=== PATIENT | male | born 1955 | race Caucasian/White ===

== ENCOUNTER 2018-12-07 18:20 | Emergency (ER) | payer BC ==
--- NOTE | 2018-12-07 18:56 | ED ---
Skin Complaint - HPI Summary HPI Summary: 63 yr old with the complaint of rash left side chest wall. The patient began to get pain on the left side that was burning last evening and this morning developed rash that is red with some vesicles. The patient has pain that is moderate. No fever or chills. No other complaints. - History of Current Complaint Chief Complaint: UCRash Time Seen by Provider: 12/07/18 18:42 Stated Complaint: SKIN COMP Pain Intensity: 8 - Allergy/Home Medications Allergies/Adverse Reactions: Allergies Allergy/AdvReac Type Severity Reaction Status Date / Time No Known Allergies Allergy Verified 12/07/18 18:39 Home Medications: Home Medications Levothyroxine TAB* [Synthroid TAB*] 175 mcg PO 0600 12/07/18 [History Confirmed 12/07/18] Lisinopril TAB* [Prinivil TAB*] 10 mg PO BEDTIME 12/07/18 [History Confirmed 06/22] Rivaroxaban TAB(*) [Xarelto 20 mg] 20 mg PO DAILY 12/07/18 [History Confirmed ] Simvastatin TAB(NF) [Zocor(NF)] 10 mg PO BEDTIME 12/07/18 [History Confirmed 06/22] metFORMIN* [Glucophage 500 MG TAB *] 2 tab PO BID 12/07/18 [History Confirmed ] PMH/Surg Hx/FS Hx/Imm Hx Endocrine/Hematology History: Reports: Hx Diabetes - type 2, Hx Thyroid Disease Cardiovascular History: Reports: Hx Hypertension Respiratory History: Denies: Hx Asthma Comment Only: Other Respiratory Problems/Disorders - follow up CXR- Infectious Disease History: No Infectious Disease History: Denies: Traveled Outside the [place] in Last 30 Days - Family History Known Family History: Positive: None - Social History Alcohol Use: Weekly Alcohol Amount: weekends only Substance Use Type: Reports: None Smoking Status (MU): Former Smoker Review of Systems Constitutional: Negative Positive: Rash All Other Systems Reviewed And Are Negative: Yes Physical Exam Triage Information Reviewed: Yes Vital Signs On Initial Exam: Initial Vitals Temp Pulse Resp BP Pulse Ox 98 F 69 16 133/72 98 12/07/18 18:34 12/07/18 18:34 12/07/18 18:34 12/07/18 18:34 12/07/18 18:34 Vital Signs Reviewed: Yes Appearance: Positive: Well-Appearing, No Pain Distress Skin: Positive: Other - rash left side thorax, red rash in the T-8 dermatome. Doesn't cross midline. Head/Face: Positive: Normal Head/Face Inspection Eyes: Positive: EOMI, EDAGR ENT: Positive: Normal ENT inspection Neck: Positive: Nontender Respiratory/Lung Sounds: Positive: Clear to Auscultation, Breath Sounds Present Cardiovascular: Positive: RRR. Negative: Murmur Abdomen Description: Negative: Distended Musculoskeletal: Positive: Strength/ROM Intact Neurological: Positive: Sensory/Motor Intact, Alert, Oriented to Person Place, Time, CN Intact II-III, Normal Gait, Speech Normal Psychiatric: Positive: Normal Diagnostics - Vital Signs Vital Signs Temp Pulse Resp BP Pulse Ox 12/07/18 18:34 98 F 69 16 133/72 98 - Laboratory Lab Statement: Any lab studies that have been ordered have been reviewed, and results considered in the medical decision making process. Course/Dx - Course Course Of Treatment: 63 yr old with shingles. Rx with Valtrex. - Diagnoses Provider Diagnoses: Shingles Discharge ED - Sign-Out/Discharge Documenting (check all that apply): Patient Departure All imaging exams completed and their final reports reviewed: No Studies - Discharge Plan Condition: Good Disposition: HOME Prescriptions: Gabapentin CAP(*) [Neurontin 300 CAP(*)] 300 mg PO BEDTIME #10 cap ValACYclovir (*) [Valtrex 1 GM(*)] 1 gm PO TID #21 tab Patient Education Materials: Shingles (ED) Referrals: Farideh Gibbs [Primary Care Provider] - 1 Week - Billing Disposition and Condition Condition: GOOD Disposition: Home
== END 2018-12-07 18:58 | disposition home or self-care (01) ==
LOC: UCCORT 18:20
DX: B02.9 Zoster without complications (principal); E11.9 Type 2 diabetes mellitus without complications; Z79.84 Long term (current) use of oral hypoglycemic drugs; I10 Essential (primary) hypertension; E07.9 Disorder of thyroid, unspecified; Z87.891 Personal history of nicotine dependence
CPT/HCPCS: 99202; G0463

== ENCOUNTER 2019-01-30 08:58 | Emergency (ER) | payer BC ==
[2019-01-30 09:09] VITALS: BP 117/62
--- NOTE | 2019-01-30 09:16 | UC ---
Respiratory Complaint HPI - HPI Summary HPI Summary: Pt presents with c/o cough, chest congestion, fever, chills, and malaise X 4 days. Pt has been taking OTC cough and cold medication with no improvement of symptoms. - History of Current Complaint Chief Complaint: UCRespiratory Stated Complaint: FEVER,COUGH,CHEST CONGESTION Time Seen by Provider: 01/30/19 09:04 Hx Obtained From: Patient Onset/Duration: Gradual Onset, Lasting Days, Still Present, Worse Since - onset Timing: Constant Severity Initially: Mild Severity Currently: Moderate Pain Intensity: 0 Character: Cough: Productive Aggravating Factors: Deep Breaths, Recumbent Position Alleviating Factors: Nothing Associated Signs And Symptoms: Positive: Fever, Chills, Wheezing, URI, Nasal Congestion - Risk Factors Pulmonary Embolism Risk Factors: Smoking Cardiac Risk Factors: Smoking Pseudomonas Risk Factors: Chronic Lung Disease Tuberculosis Risk Factors: Smoking - Allergies/Home Medications Allergies/Adverse Reactions: Allergies Allergy/AdvReac Type Severity Reaction Status Date / Time heparin AdvReac See Comment Verified 01/30/19 09:06 PMH/Surg Hx/FS Hx/Imm Hx Previously Healthy: Yes Endocrine History: Diabetes Cardiovascular History: Cardiac Disease, Hypertension Respiratory History: COPD - long hx of smoking - Surgical History Surgical History: None - Family History Known Family History: Positive: Cardiac Disease - Social History Occupation: Employed Part-time Lives: With Family Alcohol Use: Weekly Alcohol Amount: weekends only Substance Use Type: None Smoking Status (MU): Former Smoker Have You Smoked in the Last Year: No Review of Systems All Other Systems Reviewed And Are Negative: Yes Constitutional: Positive: Fever, Chills, Fatigue Skin: Positive: Negative Eyes: Positive: Negative ENT: Positive: Sinus Congestion Respiratory: Positive: Shortness Of Breath, Cough Cardiovascular: Positive: Negative Gastrointestinal: Positive: Negative Genitourinary: Positive: Negative Motor: Positive: Negative Neurovascular: Positive: Negative Musculoskeletal: Positive: Myalgia Neurological: Positive: Negative Psychological: Positive: Negative Is Patient Immunocompromised?: No Physical Exam Triage Information Reviewed: Yes Appearance: Ill-Appearing Vital Signs: Initial Vital Signs Temp 98.3 F 01/30/19 09:03 Pulse 97 01/30/19 09:03 Resp 18 01/30/19 09:03 BP 117/62 01/30/19 09:03 Pulse Ox 94 01/30/19 09:03 Vital Signs Reviewed: Yes Eye Exam: Normal ENT: Positive: Nasal congestion Dental Exam: Normal Neck exam: Normal Respiratory: Positive: Decreased breath sounds, Wheezing Cardiovascular Exam: Normal Musculoskeletal Exam: Normal Neurological Exam: Normal Psychological Exam: Normal Skin Exam: Other - diaphoretic Respiratory Course/Dx - Differential Dx/Diagnosis Differential Diagnosis/HQI/PQRI: Bronchitis, Influenza Provider Diagnosis: Pneumonia Discharge ED - Sign-Out/Discharge Documenting (check all that apply): Patient Departure All imaging exams completed and their final reports reviewed: No Studies - Discharge Plan Condition: Stable Disposition: HOME Prescriptions: Albuterol HFA INHALER* [Ventolin HFA Inhaler*] 1 - 2 puff INH Q4H PRN #1 mdi PRN Reason: Sob/Wheezing Benzonatate CAP* [Tessalon 100 MG CAP*] 200 mg PO Q8H PRN #30 cap PRN Reason: Cough DOXYcycline CAP(*) [DOXYcycline 100MG CAP(*)] 100 mg PO Q12H #20 cap Patient Education Materials: Pneumonia (ED) Referrals: Farideh Gibbs [Primary Care Provider] - If Needed - Billing Disposition and Condition Condition: STABLE Disposition: Home
== END 2019-01-30 09:25 | disposition home or self-care (01) ==
LOC: UCCORT 08:58
DX: J18.9 Pneumonia, unspecified organism (principal); Z88.8 Allergy status to other drugs, medicaments and biological substances; E11.9 Type 2 diabetes mellitus without complications; I10 Essential (primary) hypertension; R09.81 Nasal congestion; R53.81 Other malaise; Z87.891 Personal history of nicotine dependence
CPT/HCPCS: 99212; G0463